=== PATIENT | male | born 1975 | race Caucasian/White ===

== ENCOUNTER 2016-12-08 13:23 | Emergency (ER) | payer OTHER ==
--- NOTE | 2016-12-08 17:59 | RAD ---
LEFT ANKLE 3 VIEWS: Date: 12/08/16 Soft tissue swelling is prominent laterally. The joint itself appears normal. There is a suggestion of a tiny cortical avulsion from the lateral aspect of the talus that could be from damage to one of the talofibular ligaments. A calcaneal spur is present. There is some ossification of the insertion of the Achilles tendon on the calcaneus. IMPRESSION: Soft tissue swelling with possible tiny cortical avulsion laterally. POS: HOME
== END 2016-12-08 14:24 | disposition home or self-care (01) ==
LOC: BURERS 13:23
DX: S93.402A Sprain of unspecified ligament of left ankle, initial encounter (principal); I10 Essential (primary) hypertension; F17.210 Nicotine dependence, cigarettes, uncomplicated; X58.XXXA Exposure to other specified factors, initial encounter

== ENCOUNTER 2016-12-24 12:02 | Outpatient (CLI) | payer OTHER ==
--- NOTE | 2016-12-24 21:04 | RAD ---
LEFT ANKLE THREE VIEWS 12/24/16 Comparison is made with 12/08 study. This study further confirms the tiny cortical avulsion from the lateral aspect of the talus. There h as been no adverse change in the interval. Soft tissue swelling is still present laterally but it is improved slightly. The articular surfaces are smooth. IMPRESSION: Confirmation of tiny cortical avulsion near the insertion of the talofibular ligaments on the talus. POS: HOME
== END 2016-12-24 12:03 | disposition home or self-care (01) ==
LOC: BURRAD 12:02
PROVIDERS: ATTEND Physician Assistant
DX: S92.155D Nondisplaced avulsion fracture (chip fracture) of left talus, subsequent encounter for fracture with routine healing (principal)

== ENCOUNTER 2018-05-15 16:23 | Emergency (ER) | payer OTHER ==
[2018-05-15] MEDS ORDERED: AMOXicillin 250 MG CAP ONE ×2 (18:11→18:13)
== END 2018-05-15 18:15 | disposition home or self-care (01) ==
LOC: BURERS 16:23
DX: L02.415 Cutaneous abscess of right lower limb (principal); J06.9 Acute upper respiratory infection, unspecified; F41.9 Anxiety disorder, unspecified; F32.9 Major depressive disorder, single episode, unspecified; I10 Essential (primary) hypertension; G47.30 Sleep apnea, unspecified; F17.210 Nicotine dependence, cigarettes, uncomplicated; Z79.899 Other long term (current) drug therapy
CPT/HCPCS: 10060

== ENCOUNTER 2018-10-06 13:28 | Outpatient (CLI) | payer OTHER ==
--- NOTE | 2018-10-06 20:15 | RAD ---
CHEST 2 VIEWS: Date: 10/06/18 Comparison is made with the 06/21/17 study. The heart is normal in size. The lungs are clear with no sign of infiltrate, pleural effusion, or oth er focal findings. The lungs may be minimally hyperexpanded. The mediastinum appears normal and the t rachea is midline. IMPRESSION: No acute thoracic finding. POS: HOME
== END 2018-10-06 13:29 | disposition home or self-care (01) ==
LOC: BURRAD 13:28
PROVIDERS: ATTEND Physician Assistant
DX: Z01.818 Encounter for other preprocedural examination (principal); K21.9 Gastro-esophageal reflux disease without esophagitis
CPT/HCPCS: 36415; 71046; 86677

== ENCOUNTER 2019-03-07 13:36 | Emergency (ER) | payer OTHER ==
[2019-03-07 14:04] LABS: #Basophils 0.1 thou/uL (0.0-0.2); #Lymphocytes 0.5 thou/uL (1.20-3.40); #Monocytes 0.9 thou/uL (0.11-0.59); #Neutrophils 17.3 thou/uL (1.40-6.50); %Basophils 0.7 % (0.0-1.0); %Lymphocytes 2.8 % (21.0-51.0); %Monocytes 4.6 % (0.0-10.0); %Neutrophils 91.8 % (42.0-75.0); Hemoglobin 15.9 g/dL (14.0-18.0); Mean Corpuscular HGB CONC 34.7 g/dL (32.0-36.0); Mean Corpuscular Hemoglobin 32.3 pg (27.0-31.0); Mean Corpuscular Volume 92.9 fL (78.0-98.0); Mean Platelet Volume 8.6 fL (7.4-10.4); Platelet Count 298 thou/uL (130-400); RBC Distribution Width 11.9 % (11.5-14.5); Red Blood Cell (RBC) Count 4.93 mill/uL (4.70-6.10); White Blood Cell (WBC) Count 18.8 thou/uL (4.8-10.8)
[2019-03-07] MEDS ORDERED: Acetaminophen 500 MG TAB ONE (14:10)
[2019-03-07] MEDS ORDERED: Piperacillin/Tazobactam 4.5 GM VIAL ONE (14:10)
[2019-03-07] MEDS ORDERED: Sodium Chloride 0.9% 100 ML ONE (14:11)
[2019-03-07] MEDS ORDERED: Ondansetron PF 4 MG/2 ML Vial ONE (14:13)
[2019-03-07 14:20] LABS: ALT (SGPT) 43 U/L (8-55); AST (SGOT) 23 U/L (5-34); Albumin 4.7 g/dL (3.5-5.0); Alkaline Phosphatase 82 U/L (40-150); Anion Gap 20 mmol/L (10-20); BUN (Urea Nitrogen) 21 mg/dL (8.9-20.6); Bilirubin, Total 0.8 mg/dL (0.2-1.2); Calc. Creatinine Clearance 0 mL/min (70-130); Carbon Dioxide 22 mmol/L (22-29); Chloride 97 mmol/L (98-107); Estimated GFR-MDRD 48; Globulin 3.8 g/dL (2.4-3.5); Glucose 133 mg/dL (70-105); Lipase 78 U/L (8-78); Potassium 4.5 mmol/L (3.5-5.1); Protein, Total 8.5 g/dL (6.0-8.3); Sodium 134 mmol/L (136-145)
[2019-03-07 16:16] LABS: Bilirubin Negative (Negative); Blood, Urine Negative (Negative); Clarity Slightly Cloudy (Clear); Glucose, Urine (Dipstick) Negative (Negative); Leukocyte Negative (Negative); Nitrite Negative (Negative); Protein, Urine (Dipstick) Negative (Neg-Trace); Urobilinogen 0.2 mg/dL (Less than 2)
--- NOTE | 2019-03-07 18:09 | RAD ---
PORTABLE CHEST: 03/07/19 An AP portable film at 1423 is compared with the prior study dated 10/06/18. The heart is normal in size and the lungs are clear. No infiltrate, effusion, or vascular congestion was seen. The mediastinum appears normal. IMPRESSION: No acute thoracic finding. POS: HOME
--- NOTE | 2019-03-07 19:34 | CT ---
CT ABDOMEN AND PELVIS WITHOUT CONTRAST: 03/07/19 The lung bases are clear. There is no infiltrate or effusion. A tiny calcified granuloma is seen in t he lingula of the left upper lobe. There is diffuse fatty infiltration of the liver. The spleen is normal in size. The pancreas and adre nal glands appear normal. The gallbladder is a bit generous in size but shows no signs of stones or w all thickening. The kidneys reveal no mass, hydronephrosis, or calcification. The bowel is nondistended. There is no sign of bowel wall thickening or gabriel-intestinal inflammatory change. No free air or free fluid was detected. CT of the pelvis showed no pelvic masses, fluid collections, or inflammatory changes. IMPRESSION: Diffuse fatty infiltration of the liver. No acute abdominal or pelvic findings. POS: HOME
== END 2019-03-07 15:58 | disposition short-term general hospital (02) ==
LOC: BURERS 13:36
DX: A41.9 Sepsis, unspecified organism (principal); F41.9 Anxiety disorder, unspecified; F32.9 Major depressive disorder, single episode, unspecified; I10 Essential (primary) hypertension; G47.30 Sleep apnea, unspecified; Z79.899 Other long term (current) drug therapy
CPT/HCPCS: 71045; 74176; 80053; 81003; 82550; 83605; 83690; 84484; 85025; 93005; 96361; 96365; 96368; 96375; J2405; J2543; J3370; J3490